=== PATIENT | female | born 1980 | race Caucasian/White ===

== ENCOUNTER 2020-01-15 18:19 | Emergency (ER) | payer OTHER ==
[2020-01-15] MEDS ORDERED: ASPIRIN 81 MG TABLET, CHEWABLE PO ONE (18:58)
--- NOTE | 2020-01-15 18:58 | ER Document Report ---
ED Medical Screen (RME) - General Chief Complaint: Chest Pain Stated Complaint: CHEST PAIN,LEFT ARM PAIN Time Seen by Provider: 01/15/20 18:54 Primary Care Provider: KRIS DENISE DO [Primary Care Provider] - Follow up as needed Mode of Arrival: Ambulatory Information source: Patient Notes: 39-year-old female presented to ED for left-sided chest pain that started this afternoon. She states she has had chest pain in the past but is always been on the right side and they are diagnosed with GERD. She states this is the first time she has had upper left chest pain and this pain radiates to her left shoulder and up to her left jaw. She denies any history of any blood pressure cholesterol or diabetes. She is alert oriented respirations regular nonlabored. Other had a heart attack at 57 he survived. He states her grandmother had heart disease and had a [address] bypass but she was in her 70s at that time. She said her only diagnoses are GERD and hypothyroid. She has had a cholecystectomy and 2 C-sections. She denies use of cigarettes alcohol or illicit drugs. I have greeted and performed a rapid initial assessment of this patient. A comprehensive ED assessment and evaluation of the patient, analysis of test results and completion of medical decision making process will be conducted by an additional ED providers. TRAVEL OUTSIDE OF THE [place] IN LAST 30 DAYS: No - Related Data Allergies/Adverse Reactions: No Known Allergies Allergy (Verified 05/06/15 09:34) Past Medical History - Past Medical History Cardiac Medical History: Denies: Hx Coronary Artery Disease, Hx Heart Attack, Hx Hypertension Pulmonary Medical History: Denies: Hx Asthma, Hx Bronchitis, Hx COPD, Hx Pneumonia Neurological Medical History: Denies: Hx Cerebrovascular Accident, Hx Seizures Musculoskeltal Medical History: Denies Hx Arthritis Past Surgical History: Reports: Hx Section, Hx Cholecystectomy - Immunizations Hx Diphtheria, Pertussis, Tetanus Vaccination: Yes Physical Exam - Vital signs Vitals: Temp Pulse Resp BP Pulse Ox 98.2 F 87 16 126/81 H 99 01/15/20 18:35 01/15/20 18:35 01/15/20 18:35 01/15/20 18:35 01/15/20 18:35 Course - Vital Signs Vital signs: Temp Pulse Resp BP Pulse Ox 98.2 F 87 16 126/81 H 99 01/15/20 18:35 01/15/20 18:35 01/15/20 18:35 01/15/20 18:35 01/15/20 18:35 Doctor's Discharge - Discharge Referrals: KRIS DENISE, [Primary Care Provider] - Follow up as needed
[2020-01-15 19:21] LABS: ABSOLUTE BASOPHILS # (AUTO) 0.1 10^3/uL (0.0-0.2); ABSOLUTE EOSINOPHILS # (AUTO) 0.3 10^3/uL (0.0-0.6); ABSOLUTE LYMPHOCYTES (AUTO) 2.4 10^3/uL (0.5-4.7); ABSOLUTE MONOCYTES (AUTO) 0.8 10^3/uL (0.1-1.4); ABSOLUTE NEUT (AUTO) 8.7 10^3/uL (1.7-8.2); EOSINOPHILS % (AUTO) 2.5 % (0-6); HEMATOCRIT 38.6 % (36.0-47.0); HEMOGLOBIN 13.1 g/dL (12.0-15.5); LYMPHOCYTES % (AUTO) 19.3 % (13-45); MEAN CORPUSCULAR HEMOGLOBIN 27.9 pg (27.0-33.4); MEAN CORPUSCULAR HGB CONC 33.9 g/dL (32.0-36.0); MEAN CORPUSCULAR VOLUME 82 fl (80-97); MONOCYTES % (AUTO) 6.4 % (3-13); PLATELET COUNT 316 10^3/uL (150-450); RED BLOOD COUNT 4.69 10^6/uL (3.72-5.28); RED CELL DISTRIBUTION WIDTH 14.1 % (11.5-14.0); SEGMENTED NEUTROPHILS % (AUTO) 70.8 % (42-78); TOTAL CELLS COUNTED % (AUTO) 100 %; WHITE BLOOD COUNT 12.3 10^3/uL (4.0-10.5)
--- NOTE | 2020-01-15 19:28 | RADIOLOGY REPORT (SQ) ---
EXAM DESCRIPTION: CHEST 2 VIEWS COMPLETED DATE/TIME: 01/15/2020 7:16 pm REASON FOR STUDY: Pain left chest left shoulder left jaw COMPARISON: None. TECHNIQUE: Frontal and lateral radiographic views of the chest acquired. NUMBER OF VIEWS: Two view. LIMITATIONS: None. FINDINGS: LUNGS AND PLEURA: No opacities, masses or pneumothorax. No pleural effusion. MEDIASTINUM AND HILAR STRUCTURES: No masses or contour abnormalities. HEART AND VASCULAR STRUCTURES: Heart normal size. No evidence for failure. BONES: No acute findings. HARDWARE: None in the chest. OTHER: No other significant finding. IMPRESSION: NO SIGNIFICANT RADIOGRAPHIC FINDING IN THE CHEST. TECHNICAL DOCUMENTATION: JOB ID: [id number] 2010 [employer]- All Rights Reserved Reading location - IP/workstation name: [email or web address]
[2020-01-15 19:46] LABS: ALBUMIN 4.6 g/dL (3.5-5.0); ALKALINE PHOSPHATASE 85 U/L (38-126); ANION GAP 10 (5-19); ASPARTATE AMINO TRANSFERASE 23 U/L (14-36); BILIRUBIN,DIRECT 0.3 mg/dL (0.0-0.4); BILIRUBIN,TOTAL 0.3 mg/dL (0.2-1.3); BLOOD UREA NITROGEN 17 mg/dL (7-20); CALCIUM 9.8 mg/dL (8.4-10.2); CARBON DIOXIDE 29 mmol/L (22-30); CHLORIDE 101 mmol/L (98-107); GLUCOSE 98 mg/dL (75-110); POTASSIUM 3.9 mmol/L (3.6-5.0); TOTAL PROTEIN 8.2 g/dL (6.3-8.2)
--- NOTE | 2020-01-15 22:19 | EKG REPORT ---
SEVERITY:- NORMAL ECG - SINUS RHYTHM : Confirmed by: Rah Landrum MD 15-Jan-2020 22:18:49
[2020-01-15] MEDS ORDERED: LIDOCAINE 2% VISCOUS SOLN 15 ML UDCUP PO ONE (23:54)
[2020-01-15] MEDS ORDERED: MAG HYDROX/AL HYDROX/SIMETH SUSP 30 ML UDCUP PO ONE (23:55)
[2020-01-15] MEDS ORDERED: METOCLOPRAMIDE HCL ORAL SOLN 10 MG/10 ML UDCUP PO ONE (23:56)
--- NOTE | 2020-01-16 00:15 | ER Document Report ---
Entered by INDIA CARRERA SCRIBE 01/15/20 [id number] Acting as scribe for:MATTHEW ANDREW IV, MD ED General - General Chief Complaint: Chest Pain Stated Complaint: CHEST PAIN,LEFT ARM PAIN Time Seen by Provider: 01/15/20 18:54 Primary Care Provider: KRIS DENISE DO [Primary Care Provider] - Follow up as needed Mode of Arrival: Ambulatory Information source: Patient Notes: This 39 year old female patient presents to the emergency department today with complaints of reproducible chest pain. Patient states that she has had this chest pain for the last few weeks and she has noticed that certain movements like rotating her head/neck reproduces the pain. Patient states that the pain is a quick stabbing pain, lasting only a few seconds. Patient mentions that she also sometimes has a "heavy throbbing feeling" in her left arm which changes based on how she holds her left arm. Patient denies any new or unusual activities. Patient adds that she has also been having trouble with GERD since October and she is unsure if that is related to this chest pain. Patient states that she has an upcoming appointment with GI scheduled. Patient states she has tried antacids with no relief. Patient is not a smoker and does not take control. TRAVEL OUTSIDE OF THE [place] IN LAST 30 DAYS: No - Related Data Allergies/Adverse Reactions: No Known Allergies Allergy (Verified 05/06/15 09:34) Past Medical History - General Information source: Patient - Social History Smoking Status: Never Smoker Cigarette use (# per day): No Frequency of alcohol use: None Drug Abuse: None Occupation: Nurse Lives with: Family Family History: Reviewed & Not Pertinent Patient has suicidal ideation: No Patient has homicidal ideation: No GI Medical History: Reports: Hx Gastroesophageal Reflux Disease Past Surgical History: Reports: Hx Section, Hx Cholecystectomy - Immunizations Hx Diphtheria, Pertussis, Tetanus Vaccination: Yes Review of Systems - Review of Systems Constitutional: No symptoms reported EENT: No symptoms reported Cardiovascular: See HPI, Chest pain Respiratory: denies: Short of breath Gastrointestinal: See HPI, Abdominal pain Genitourinary: No symptoms reported Female Genitourinary: No symptoms reported Musculoskeletal: No symptoms reported Skin: No symptoms reported Hematologic/Lymphatic: No symptoms reported Neurological/Psychological: No symptoms reported -: Yes All other systems reviewed and negative Physical Exam - Vital signs Vitals: Temp Pulse Resp BP Pulse Ox 98.2 F 87 16 126/81 H 99 01/15/20 18:35 01/15/20 18:35 01/15/20 18:35 01/15/20 18:35 01/15/20 18:35 - General General appearance: Appears well, Alert In distress: None - HEENT Head: Normocephalic, Atraumatic Eyes: Normal - Respiratory Respiratory status: No respiratory distress Chest status: Tender - reproducible left sided chest pain with palpation of the left anterior chest wall Breath sounds: Normal - Cardiovascular Rhythm: Regular Heart sounds: Normal auscultation Murmur: No - Abdominal Inspection: Obese Distension: No distension Bowel sounds: Normal Tenderness: Nontender - Extremities General upper extremity: Normal inspection, Nontender, Normal ROM General lower extremity: Normal inspection, Nontender, Normal ROM - Neurological Neuro grossly intact: Yes Cognition: Normal Orientation: AAOx4 [place] Coma Scale Eye Opening: Spontaneous Carla Coma Scale Verbal: Oriented [place] Coma Scale Motor: Obeys Commands [place] Coma Scale Total: 15 Speech: Normal - Psychological Associated symptoms: Normal affect, Normal mood - Skin Skin Temperature: Warm Skin Moisture: Dry Skin Color: Normal Course - Re-evaluation Re-evalutation: 01/16/20 01:02 Results of ED MSE discussed with patient. All questions were answered prior to discharge. Emergency signs and symptoms, reasons to return to the emergency department discussed with patient. - Vital Signs Vital signs: Temp Pulse Resp BP Pulse Ox 98.2 F 87 16 126/81 H 99 01/15/20 18:35 01/15/20 18:35 01/15/20 18:35 01/15/20 18:35 01/15/20 18:35 - Laboratory Result Diagrams: 01/15/20 19:00 01/15/20 19:00 Laboratory results interpreted by me: 01/15/20 19:00 WBC 12.3 H RDW 14.1 H Absolute Neuts (auto) 8.7 H - EKG Interpretation by Me Additional EKG results interpreted by me: 01/16/20 01:03 EKG obtained on 01/15/2020 at 1830 hrs. was interpreted by this MD. Findings: Normal sinus rhythm, rate 81, normal axis, P waves proceed QRS complexes, QRS complexes appear narrow, there are no obvious patterns of ST segment elevation or depression present to suggest acute myocardial ischemia or infarction. Impr ession: Normal sinus rhythm with nonspecific ST segments. Discharge - Discharge Clinical Impression: Chest pain Qualifiers: Chest pain type: unspecified Qualified Code(s): R07.9 - Chest pain, unspecified Condition: Good Disposition: HOME, SELF-CARE Instructions: Chest Pain of Unclear Cause ([facility]) Additional Instructions: Return to the Emergency Department without delay if any worse. HOME CARE INSTRUCTIONS & INFORMATION: Thank you for choosing us for your medical needs. We hope you're satisfied with the care you received. After you leave, you must properly care for your problem and, at the same time, observe its progress. Any condition can change. Some illnesses can change rapidly over hours or days. If your condition worsens, return to the Emergency Department or see your physician promptly. ABOUT YOUR X-RAYS AND EKG'S: If you had an EKG or X-rays taken, they have been read by the Emergency Physician. The X-rays and EKG's will also be read by a Radiologist or Therapist Phys within 24 hours. If discrepancies are noted, you will be notified by telephone. Please be certain the ED has a correct telephone number & address where you can be reached. Also, realize that some fractures or abnormalities do not show up on initial X-rays. If your symptoms continue, see your physician. ABOUT YOUR LABORATORY TEST: If you had laboratory tests, the results have been reviewed by the Emergency Physician. Some test results (for example cultures) may not be available for several days. You will be contacted if any test result shows you need additional treatment. Please be certain the ED has a correct telephone number and address where you can be reached. ABOUT YOUR MEDICATIONS: You will receive instructions on how to take your medicine on the prescription label you receive. Additional information may be provided by the Pharmacy. If you have questions afterwards, call the ED for clarification or further instructions. Some prescribed medications may cause drowsiness. Do not perform tasks such as driving a car or operating machinery without consulting your Pharmacist. If you feel you need a refill of pain medication, your condition will need re-evaluation. Please do not call for a refill of any medication. ABOUT YOUR SIGNATURE: Signature of this document acknowledges to followin. Understanding that you received emergency treatment and that you may be released before al medical problems are known or treated. Please be certain the ED has a correct phone number & address where you can be reached. 2. Acknowledgement that you will arrange for follow-up care as recommended. 3. Authorization for the Emergency Physician to provide information to your follow-up Physician in order to maximize your care. AT ANY TIME, IF YOUR SYMPTOMS CHANGE SIGNIFICANTLY OR WORSEN OR YOU DEVELOP NEW SYMPTOMS, RETURN TO THE EMERGENCY DEPARTMENT IMMEDIATELY FOR RE-EVALUATION. OUR GOAL IS TO PROVIDE EXCELLENT MEDICAL CARE! WE HOPE THAT WE HAVE MET YOUR EXPECTATIONS DURING YOUR EMERGENCY DEPARTMENT VISIT AND THAT YOU FEEL YOU HAVE RECEIVED EXCELLENT CARE! Referrals: KRIS DENISE, DO [Primary Care Provider] - Follow up as needed I personally performed the services described in the documentation, reviewed and edited the documentation which was dictated to the scribe in my presence, and it accurately records my words and actions.
[2020-01-16 01:58] VITALS: BP 120/79
== END 2020-01-16 01:53 | disposition home or self-care (01) ==
LOC: ER 18:19
DX: R07.9 Chest pain, unspecified (principal); R10.9 Unspecified abdominal pain; M79.602 Pain in left arm; E66.9 Obesity, unspecified; K21.9 Gastro-esophageal reflux disease without esophagitis; Z90.49 Acquired absence of other specified parts of digestive tract
CPT/HCPCS: 93005; 99285; 36415; 85025; 80053; 84484; 71046; 93010; J3490

== ENCOUNTER → 2020-08-02 | Outpatient (CLI) | payer OTHER ==
--- NOTE | 2020-08-02 12:50 | RADIOLOGY REPORT (SQ) ---
EXAM DESCRIPTION: NM GASTRIC EMPTYING STUDY IMAGES COMPLETED DATE/TIME: 08/02/2020 12:39 pm REASON FOR STUDY: R14.0 ABDOMINAL DISTENSION (GASEOUS) R14.0 ABDOMINAL DISTENSION (GASEOUS) COMPARISON: None. RADIONUCLIDE AND DOSE: 2 millicuries Tc-99m Sulfur Colloid. Egg salad sandwich The route of agent administration: Oral. TECHNIQUE: 1 minute serial static imaging performed at time of meal, 1 hour, 2 hours, 3 hours, and 4 hours as needed. Once stomach reaches 90% emptying, the test is complete. Image intensity values pl otted with respect to time with linear regression algorithm. LIMITATIONS: None. FINDINGS: Patient was observed for 4 hours. Immediate post meal serves as baseline. Gastric emptying at 30 minutes was 17.3%. Gastric emptying at 60 minutes was 39.9% Gastric emptying at 90 minutes was 58.4%. Gastric emptying at 120 minutes was 71.9%. Gastric emptying at 240 minutes was 94.7% Normal values: 60 minutes: 30-90% retained. If less than 30%, abnormally rapid emptying. If greater than 90%, delaye d gastric emptying. 120 minutes: <60% retained. If greater than 60%, delayed gastric emptying. 240 minutes: <10% retained. If greater than 10%, delayed gastric emptying. IMPRESSION: NORMAL GASTRIC EMPTYING. TECHNICAL DOCUMENTATION: JOB ID: [id number] 2010 [employer]- All Rights Reserved rev-03/28 Reading location - IP/workstation name: [email or web address]
== END ==
LOC: RAD 07:51
PROVIDERS: ATTEND Internal Medicine Gastroenterology
DX: R14.0 Abdominal distension (gaseous) (principal)
CPT/HCPCS: 78264; A9541

== ENCOUNTER 2020-08-12 20:53 | Emergency (ER) | payer OTHER ==
[2020-08-12] MEDS ORDERED: NORMAL SALINE 1000 ML 1,000 ML IV ONE (21:34)
--- NOTE | 2020-08-12 21:34 | ER Document Report ---
ED Medical Screen (RME) - General Chief Complaint: Headache Stated Complaint: HEADACHE Time Seen by Provider: 08/12/20 21:25 Primary Care Provider: ARDEN GARDNER MD [Primary Care Provider] - Follow up as needed Information source: Patient Notes: Patient presents complaining of frontal headache that radiates around to the back of her head. Patient states headache started around 10 AM this morning and has gradually worsened throughout the day. Patient states prior to arrival this evening she started to develop left arm numbness. Patient states she has had headaches that are severe monthly although not typically this severe and has had left arm pain in the past although has never had left arm numbness like she is experiencing this evening. Patient reports history of hypothyroidism. I have greeted and performed a rapid initial assessment of this patient. A comprehensive ED assessment and evaluation of the patient, analysis of test results and completion of the medical decision making process will be conducted by additional ED providers. TRAVEL OUTSIDE OF THE [place] IN LAST 30 DAYS: No - Related Data Allergies/Adverse Reactions: No Known Allergies Allergy (Verified 05/06/15 09:34) Past Medical History - Past Medical History Cardiac Medical History: Denies: Hx Coronary Artery Disease, Hx Heart Attack, Hx Hypertension Pulmonary Medical History: Denies: Hx Asthma, Hx Bronchitis, Hx COPD, Hx Pneumonia Neurological Medical History: Denies: Hx Cerebrovascular Accident, Hx Seizures GI Medical History: Reports: Hx Gastroesophageal Reflux Disease Musculoskeltal Medical History: Denies Hx Arthritis Past Surgical History: Reports: Hx Section, Hx Cholecystectomy - Immunizations Hx Diphtheria, Pertussis, Tetanus Vaccination: Yes Physical Exam - Vital signs Vitals: Temp Pulse Resp BP Pulse Ox 97.3 F 79 18 126/71 H 98 08/12/20 21:14 08/12/20 21:14 08/12/20 21:14 08/12/20 21:14 08/12/20 21:14 - Neurological Neuro grossly intact: Yes Cognition: Normal Carla Coma Scale Eye Opening: Spontaneous Carla Coma Scale Verbal: Oriented Carla Coma Scale Motor: Obeys Commands [place] Coma Scale Total: 15 Notes: Numbness to left upper extremity Course - Vital Signs Vital signs: Temp Pulse Resp BP Pulse Ox 97.3 F 79 18 126/71 H 98 08/12/20 21:14 08/12/20 21:14 08/12/20 21:14 08/12/20 21:14 08/12/20 21:14 Doctor's Discharge - Discharge Referrals: ARDEN GARDNER MD [Primary Care Provider] - Follow up as needed
[2020-08-12 21:55] LABS: ABSOLUTE BASOPHILS # (AUTO) 0.1 10^3/uL (0.0-0.2); ABSOLUTE EOSINOPHILS # (AUTO) 0.2 10^3/uL (0.0-0.6); ABSOLUTE LYMPHOCYTES (AUTO) 2.3 10^3/uL (0.5-4.7); ABSOLUTE MONOCYTES (AUTO) 0.9 10^3/uL (0.1-1.4); ABSOLUTE NEUT (AUTO) 8.4 10^3/uL (1.7-8.2); BASOPHILS % (AUTO) 0.9 % (0-2); EOSINOPHILS % (AUTO) 1.3 % (0-6); HEMATOCRIT 36.3 % (36.0-47.0); HEMOGLOBIN 12.2 g/dL (12.0-15.5); LYMPHOCYTES % (AUTO) 19.2 % (13-45); MEAN CORPUSCULAR HEMOGLOBIN 26.8 pg (27.0-33.4); MEAN CORPUSCULAR HGB CONC 33.4 g/dL (32.0-36.0); MEAN CORPUSCULAR VOLUME 80 fl (80-97); MONOCYTES % (AUTO) 7.3 % (3-13); PLATELET COUNT 303 10^3/uL (150-450); RED BLOOD COUNT 4.54 10^6/uL (3.72-5.28); RED CELL DISTRIBUTION WIDTH 14.8 % (11.5-14.0); SEGMENTED NEUTROPHILS % (AUTO) 71.3 % (42-78); TOTAL CELLS COUNTED % (AUTO) 100 %; WHITE BLOOD COUNT 11.7 10^3/uL (4.0-10.5)
[2020-08-12 21:58] LABS: PARTIAL THROMBOPLASTIN TIME 30.3 SEC (23.5-35.8)
[2020-08-12 22:01] LABS: INTERNATIONAL RATION (INR) 0.94; PROTHROMBIN TIME 12.8 SEC (11.4-15.4)
[2020-08-12 22:02] LABS: ALBUMIN 4.5 g/dL (3.5-5.0); ALKALINE PHOSPHATASE 90 U/L (38-126); ANION GAP 10 (5-19); ASPARTATE AMINO TRANSFERASE 20 U/L (14-36); BILIRUBIN,DIRECT 0.3 mg/dL (0.0-0.4); BILIRUBIN,TOTAL 0.3 mg/dL (0.2-1.3); BLOOD UREA NITROGEN 19 mg/dL (7-20); CALCIUM 9.3 mg/dL (8.4-10.2); CARBON DIOXIDE 25 mmol/L (22-30); CHLORIDE 104 mmol/L (98-107); CREATINE KINASE 62 U/L (30-135); GLUCOSE 115 mg/dL (75-110); POTASSIUM 4.1 mmol/L (3.6-5.0); TOTAL PROTEIN 7.6 g/dL (6.3-8.2)
[2020-08-12 22:22] LABS: CREATINE KINASE MB < 0.22 ng/mL (<4.55); TROPONIN I < 0.012 ng/mL
--- NOTE | 2020-08-12 22:28 | RADIOLOGY REPORT (SQ) ---
EXAM DESCRIPTION: XR CHEST 1 VIEW COMPLETED DATE/TME: 08/12/2020 21:31 CLINICAL HISTORY: 40 years, Female, [place], L arm numbness COMPARISON: 01/15/2020 chest NUMBER OF VIEWS: 1 TECHNIQUE: Portable chest LIMITATIONS: None. FINDINGS: Heart size is normal. Lungs are clear. No pneumothorax IMPRESSION: Negative chest copyright 2010 [employer]- All Rights Reserved
[2020-08-12] MEDS ORDERED: ONDANSETRON HCL INJ/PF 4 MG/2 ML SDV IV ONE (22:32)
--- NOTE | 2020-08-12 22:38 | RADIOLOGY REPORT (SQ) ---
EXAM DESCRIPTION: CT HEAD WITHOUT IV CONTRAST COMPLETED DATE/TME: 08/12/2020 21:31 CLINICAL HISTORY: 40 years, Female, [place], L arm numbness COMPARISON: None. TECHNIQUE: Noncontrast images of the brain were obtained. Images stored on PACS. All CT scanners at this facility use dose modulation, iterative reconstruction, and/or weight based dosing when appropriate to reduce radiation dose to as low as reasonably achievable (ALARA). [facility]: Dose Right [facility]: CareDose [facility]: Dose Right [facility]: Teradose 4D [facility]: [employer] LIMITATIONS: None. FINDINGS: There is no acute intracranial hemorrhage, abnormal mass effect, or major vascular territorial infarction. The ventricular system and extra-axial spaces are within normal limits. The calvarium is intact. The visualized portions of the paranasal sinuses and mastoid air cells are clear. IMPRESSION: No acute abnormality as above. TECHNICAL DOCUMENTATION: Quality ID # [id number]: Final reports with documentation of one or more dose reduction techniques (e.g., Automated exposure control, adjustment of the mA and/or kV according to patient size, use of iterative reconstruction technique) copyright 2011 [employer]- All Rights Reserved
--- NOTE | 2020-08-12 22:49 | EKG REPORT ---
SEVERITY:- NORMAL ECG - SINUS RHYTHM : Confirmed by: Rah Landrum MD 12-Aug-2020 22:49:00
--- NOTE | 2020-08-12 22:51 | ER Document Report ---
ED Headache - General Chief Complaint: Headache Stated Complaint: HEADACHE Time Seen by Provider: 08/12/20 21:25 Primary Care Provider: [facility] [Provider Group] - 08/15/20 ARDEN GARDNER MD [Primary Care Provider] - Follow up as needed Notes: Patient is a 40-year-old female who presents emergency department with a chief complaint of a headache that starts in the frontal part of her head and radiates down the back of her head. States that her symptoms started around 10:00 this morning. States that the headache has gotten progressively worse. States that she has left arm numbness. Patient has history of headaches in the past. Patient states that the numbness is something that she experiences every time that she has a migraine headache. Patient has history of hypothyroidism. Denies any new weaknesses. Denies slurred speech. TRAVEL OUTSIDE OF THE [place] IN LAST 30 DAYS: No - Related Data Allergies/Adverse Reactions: No Known Allergies Allergy (Verified 05/06/15 09:34) Past Medical History - General Information source: Patient - Social History Smoking Status: Never Smoker Family History: Reviewed & Not Pertinent - Past Medical History Cardiac Medical History: Denies: Hx Coronary Artery Disease, Hx Heart Attack, Hx Hypertension Pulmonary Medical History: Denies: Hx Asthma, Hx Bronchitis, Hx COPD, Hx Pneumonia Neurological Medical History: Denies: Hx Cerebrovascular Accident, Hx Seizures GI Medical History: Reports: Hx Gastroesophageal Reflux Disease Musculoskeletal Medical History: Denies Hx Arthritis Past Surgical History: Reports: Hx Section, Hx Cholecystectomy - Immunizations Hx Diphtheria, Pertussis, Tetanus Vaccination: Yes Review of Systems - Review of Systems Notes: REVIEW OF SYSTEMS: CONSTITUTIONAL : Denies recent illness. Denies recent unintentional weight loss. Denies fever, chills, or sweats. EENT: Denies eye, ear, throat, or mouth pain, discharge, or symptoms. Denies nasal or sinus congestion. CARDIOVASCULAR: Denies chest pain. RESPIRATORY: Denies shortness of breath, cough, congestion, difficulty breathing, or wheezing. GASTROINTESTINAL: Denies nausea, vomiting, and diarrhea. Denies abdominal pain. Denies constipation. GENITOURINARY: Denies difficulty urinating, burning, blood in urine, urgency or frequency. MUSCULOSKELETAL: See HPI. SKIN: Denies rash, itchiness, or lesions HEMATOLOGIC : Denies easy bruising or bleeding. LYMPHATIC: Denies swollen, painful, enlarged glands. NEUROLOGICAL: See HPI. PSYCHIATRIC: Denies stress, anxiety, alteration in sleep patterns, or depression. All other systems reviewed and negative. Physical Exam - Vital signs Vitals: Temp Pulse Resp BP Pulse Ox 97.3 F 79 18 126/71 H 98 08/12/20 21:14 08/12/20 21:14 08/12/20 21:14 08/12/20 21:14 08/12/20 21:14 - Notes Notes: PHYSICAL EXAMINATION: GENERAL: Appears well, healthy, well-nourished, no acute distress. HEAD: Normocephalic, atraumatic. EYES: PERRL, conjunctiva normal, all extraocular movements intact, sclera no nicteric ENT: Moist mucous membranes. NECK: Supple, no noticeable swelling, redness, rash. Normal range of motion. LUNGS: Equal breath sounds bilaterally and clear to auscultation. No wheezes r ales or rhonchi. CARDIOVASCULAR: S1-S2, regular rate, regular rhythm. Radial pulses 2+, normal. ABDOMEN: Normoactive bowel sounds. Soft, nontender, no guarding, no rebound tenderness, and no masses palpated. EXTREMITIES: Normal strength and range of motion, no pitting or edema. No cyanosis. Tenderness to left trapezius muscle and back. Tenderness to left lateral neck. NEUROLOGICAL: Moves all extremities upon command. Strength 5/5 in all extremities. PSYCH: Normal mood, normal affect. SKIN: Warm, dry. No rash, lesions, ulcerations noted. Normal skin turgor. Course - Re-evaluation Re-evalutation: 08/12/20 22:54 Clarified with the patient, the patient has had this left arm numbness before. States that Robaxin has not helped in the past for the pain. Has had Flexeril, which has worked for sciatic nerve pain in the past. Will order the patient a dose of Flexeril. CT of the head is unremarkable. I have a low suspicion for an ischemic stroke, as the patient has low risk factors and has had this kind of headache in the past. 08/12/20 23:25 Patient states that she feels a little bit better after receiving Zofran. It has not been very long since she received the Flexeril. Patient states that she would like to go home. I have a low suspicion for meningitis, intracranial bleed, or any other life-threatening etiology at this time. Patient is to go home and follow-up with her primary care provider on Saturday. Recommended physical therapy. Follow-up precautions were given. Verbal discharge instr uctions were given to the patient. They verbalized understanding. They are stable for discharge. - Vital Signs Vital signs: Temp Pulse Resp BP Pulse Ox 97.3 F 79 10 L 137/84 H 100 08/12/20 21:14 08/12/20 21:14 08/12/20 23:00 08/12/20 22:12 08/12/20 23:00 - Laboratory Result Diagrams: 08/12/20 21:39 08/12/20 21:39 Laboratory results interpreted by me: 08/12/20 08/12/20 21:39 21:39 WBC 11.7 H MCH 26.8 L RDW 14.8 H Absolute Neuts (auto) 8.4 H Glucose 115 H Neonat Total Bilirubin 0.0 L - EKG Interpretation by Me Additional EKG results interpreted by me: 08/12/20 23:30 Sinus rhythm. Rate 79. OR 148; QRS 88; QT 376; QTc 432. No ST elevations or depressions noted. No acute change from previous EKG done on 01/15/2020. Discharge - Discharge Clinical Impression: Headache Qualifiers: Headache type: unspecified Headache chronicity pattern: acute headache Intractability: not intractable Qualified Code(s): R51.9 - Headache, unspecified Condition: Stable Disposition: HOME, SELF-CARE Instructions: Antinausea Medication ([facility]), Headache ([facility]) Additional Instructions: You have been seen in the Emergency Department (ED) for a headache. Please use Tylenol (acetaminophen) or Motrin (ibuprofen) as needed for symptoms, but only as written on the box. As we have discussed, please follow up with your primary care doctor as soon as possible regarding today's ED visit and your headache symptoms. Call your doctor or return to the ED if you have a worsening headache, sudden and severe headache, confusion, slurred speech, facial droop, weakness or numbness in any arm or leg, extreme fatigue, or other symptoms that concern you. Take Flexeril as needed for muscle pain. Prescriptions: Cyclobenzaprine HCl [Flexeril 10 mg Tablet] 10 mg PO TIDP PRN #15 tab PRN Reason: Metoclopramide HCl [Reglan 10 mg Tablet] 1 - 2 tab PO ASDIR PRN #25 tablet PRN Reason: Ondansetron [Zofran Odt 4 mg Tablet] 1 - 2 tab PO Q4H PRN #15 tab.rapdis PRN Reason: For Nausea/Vomiting Referrals: ARDEN GARDNER MD [Primary Care Provider] - Follow up as needed [facility] [Provider Group] - 08/15/20
[2020-08-12] MEDS ORDERED: CYCLOBENZAPRINE HCL 10 MG TABLET PO ONE (22:54)
[2020-08-12] MEDS ORDERED: ONDANSETRON ODT 4 MG TAB (6 TAB/ER DISP) PO PRN (23:25)
[2020-08-12 23:34] VITALS: BP 137/84
== END 2020-08-12 23:44 | disposition home or self-care (01) ==
LOC: ER 20:53
DX: R51.9 Headache, unspecified (principal); Z90.49 Acquired absence of other specified parts of digestive tract
CPT/HCPCS: 93005; 99285; 96361; 96374; 36415; 82553; 82550; 85025; 85610; 85730; 80053; 84484; 71045; 70450; 93010; J2405; J7030

== ENCOUNTER 2020-09-19 12:32 | Emergency (ER) | payer SELFPAY ==
[2020-09-19] MEDS ORDERED: NORMAL SALINE 1000 ML 1,000 ML IV ONE (14:51)
[2020-09-19] MEDS ORDERED: ONDANSETRON HCL INJ/PF 4 MG/2 ML SDV IV ONE ×2 (14:51→20:09)
[2020-09-19] MEDS ORDERED: DIPHENHYDRAMINE HCL 50 MG/ML VIAL IV ONE ×2 (14:51→21:21)
--- NOTE | 2020-09-19 14:53 | ER Document Report ---
ED GI/ - General TRAVEL OUTSIDE OF THE [place] IN LAST 30 DAYS: No - Related Data Home Medications: synthroid, protonix <ALAYNA TIAN - Last Filed: 09/19/20 20:32> <MARVIN GREGORIO - Last Filed: 09/19/20 22:55> - General Chief Complaint: Nausea/Vomiting Stated Complaint: VOMITING,WEAKNESS Time Seen by Provider: 09/19/20 13:20 Primary Care Provider: KRIS DENISE DO [Primary Care Provider] - Follow up in 3-5 days Notes: Patient is a 40-year-old female presents emergency department with a chief complaint of nausea, vomiting, weakness, and headache that is at the front of her head. Patient states that for the past about 4 days, she has had the symptoms. Denies any contact with anybody who tested positive for COVID-19. Patient states that she feels "foggy." Patient has tried ibuprofen and Tylenol, but has had no relief of her symptoms. Denies any fever. Reports some chills. Patient denies any abdominal pain. Denies any shortness of breath or difficulty breathing. (ALAYNA TIAN) - Related Data Allergies/Adverse Reactions: metoclopramide [From Reglan] Allergy (Verified 09/19/20 13:46) Difficulty breathing prochlorperazine [From Compazine] Allergy (Verified 09/19/20 13:46) Difficulty breathing Past Medical History - Social History Smoking Status: Never Smoker Chew tobacco use (# tins/day): No Frequency of alcohol use: None Drug Abuse: None Family History: Reviewed & Not Pertinent - Past Medical History Cardiac Medical History: Denies: Hx Coronary Artery Disease, Hx Heart Attack, Hx Hypertension Pulmonary Medical History: Denies: Hx Asthma, Hx Bronchitis, Hx COPD, Hx Pneumonia Neurological Medical History: Denies: Hx Cerebrovascular Accident, Hx Seizures GI Medical History: Reports: Hx Gastroesophageal Reflux Disease Musculoskeletal Medical History: Denies Hx Arthritis Past Surgical History: Reports: Hx Section, Hx Cholecystectomy - Immunizations Hx Diphtheria, Pertussis, Tetanus Vaccination: Yes <ALAYNA TIAN - Last Filed: 09/19/20 20:32> Review of Systems <ALAYNA TIAN - Last Filed: 09/19/20 20:32> - Review of Systems Notes: REVIEW OF SYSTEMS: CONSTITUTIONAL : Denies recent illness. Denies recent unintentional weight loss. Denies fever, chills, or sweats. EENT: Denies eye, ear, throat, or mouth pain, discharge, or symptoms. Denies nasal or sinus congestion. CARDIOVASCULAR: Denies chest pain. RESPIRATORY: Denies shortness of breath, cough, congestion, difficulty breathing, or wheezing. GASTROINTESTINAL: See HPI. GENITOURINARY: Denies difficulty urinating, burning, blood in urine, urgency or frequency. MUSCULOSKELETAL: Denies neck and back pain. Denies joint pain or swelling. SKIN: Denies rash, itchiness, or lesions HEMATOLOGIC : Denies easy bruising or bleeding. LYMPHATIC: Denies swollen, painful, enlarged glands. NEUROLOGICAL: Denies no numbness or tingling denies weakness. Denies altered mental status. Denies alteration in speech. See HPI. PSYCHIATRIC: Denies stress, anxiety, alteration in sleep patterns, or depression. All other systems reviewed and negative. (ALAYNA TIAN) Physical Exam <ALAYNA TIAN - Last Filed: 09/19/20 20:32> - Vital signs Vitals: Temp Pulse Resp BP Pulse Ox 98.5 F 79 20 133/81 H 100 09/19/20 13:12 09/19/20 13:12 09/19/20 13:12 09/19/20 13:12 09/19/20 13:12 - Notes Notes: PHYSICAL EXAMINATION: GENERAL: Appears well, healthy, well-nourished, no acute distress. HEAD: Normocephalic, atraumatic. EYES: PERRL, conjunctiva normal, all extraocular movements intact, sclera nonicteric ENT: Moist mucous membranes. Purulent drainage noted behind bilateral tympanic membranes. NECK: Supple, no noticeable swelling, redness, rash. Normal range of motion. LUNGS: Equal breath sounds bilaterally and clear to auscultation. No wheezes rales or rhonchi. CARDIOVASCULAR: S1-S2, regular rate, regular rhythm. Radial pulses 2+, normal. ABDOMEN: Normoactive bowel sounds. Soft, nontender, no guarding, no rebound tenderness, and no masses palpated. EXTREMITIES: Normal strength and range of motion, no pitting or edema. No cyanosis. NEUROLOGICAL: Moves all extremities upon command. Strength 5/5 in all extremities. PSYCH: Normal mood, normal affect. SKIN: Warm, dry. No rash, lesions, ulcerations noted. Normal skin turgor. (ALAYNA TIAN) Course - Laboratory Result Diagrams: 09/19/20 15:53 09/19/20 15:53 <ALAYNA TIAN - Last Filed: 09/19/20 20:32> - Laboratory Result Diagrams: 09/19/20 15:53 09/19/20 15:53 - Diagnostic Test Radiology reviewed: Image reviewed, Reports reviewed <MARVIN GREGORIO - Last Filed: 09/19/20 22:55> - Re-evaluation Re-evalutation: 09/19/20 17:29 Hematology shows a slight leukocytosis of 10,800. Chemistries are unremarkable. Urinalysis shows small amount of blood, patient is currently on her menstrual cycle. Patient's bilateral tympanic membranes look infected, as there is purulent drainage behind both of them. Will place patient on amoxicillin for otitis media. 09/19/20 19:20 Patient states that she feels worse than when she came in. I will send the patient for CT of the head to rule out any intracranial process. 09/19/20 20:32 Bedside report given to CAROLINA Meade. She will follow up with the CT of the head. (ALAYNA TIAN) 09/19/20 20:16 Assumed care of the patient from nurse practitioner Alayna Tian. Patient with headache for several days it is right-sided with significant nausea and photophobia. Initially FORE[employer] TECHNICIAN's Alayna Tian felt like maybe her ears look slightly infected. She started her on some amoxicillin. She was given Phenergan and Benadryl for her nausea and headache. That really helped her. She continues to complain of a significant headache. Thus, head CT was ordered. I went and rounded on the patient with nurse practitioner placed and examined her myself. She is significantly photophobic. Holding the right side of her he ad. Wanting only the lights off. She is fully neurologically intact with no deficit. She has no nystagmus. Ear exam shows some mild erythema but the TMs actually look pretty clear save for a little serous effusion. She does not have a stiff neck or nuchal rigidity. We will await the head CT results. Will give Decadron now and Zofran. Will give another bag of fluids. Of note there is no family history for cerebral aneurysm. Rounded on the patient after head CT which is negative. We will go ahead and give 30 mg of Toradol to see if that helps with her headache. I advised the patient of her head CT result and the plan to give Toradol. I will go and see her approximately 30 minutes after the Toradol to see if she is improved. Patient agrees with the plan 09/19/20 22:34 Rounded on patient. She states the Toradol is helping her headache. She has now a 3 out of 5 for pain. She has good control of her nausea. We did give her another 12.5 mg of Benadryl because after the Decadron she started to feel like she had a tickle in her throat. After the Benadryl that resolved. We will round on the patient again in 20 minutes to see how she is doing. 09/19/20 22:50 Rounded on the patient. Her headache is improved even further. Now she has a headache that is a 1 out of 5. She states she feels a lot better and she would like to go home. Suspect that this is some sort of migraine variant. We will have her follow-up with her physician at [facility]. She is to return if she has any worsening symptoms. We discussed antibiotics for her ears and she would like to have the amoxicillin. Will send that over to her pharmacy. We will also send home with Fioricet and Zofran. Impression: Headache, nausea vomiting, photophobia, concern for early ear infection. We will follow the treatment plan as described above. I encouraged her to return if any worsening symptoms. Patient agrees with the plan. (MARVIN GREGORIO) - Vital Signs Vital signs: Temp Pulse Resp BP Pulse Ox 98.5 F 78 20 131/80 H 100 09/19/20 19:51 09/19/20 19:51 09/19/20 19:51 09/19/20 19:51 09/19/20 19:51 - Laboratory Laboratory results interpreted by me: 09/19/20 09/19/20 15:00 15:53 WBC 10.8 H MCH 26.8 L RDW 14.6 H Urine Blood SMALL H Discharge <JAYLAN,ALAYNA M - Last Filed: 09/19/20 20:32> <MARVIN GREGORIO M - Last Filed: 09/19/20 22:55> - Discharge Clinical Impression: Photophobia of both eyes Otitis media Qualifiers: Otitis media type: unspecified Laterality: bilateral Qualified Code(s): H66.93 - Otitis media, unspecified, bilateral Headache Qualifiers: Headache type: unspecified Headache chronicity pattern: acute headache Intractability: not intractable Qualified Code(s): R51.9 - Headache, unspecified Nausea & vomiting Qualifiers: Vomiting type: unspecified Vomiting Intractability: non-intractable Qualified Code(s): R11.2 - Nausea with vomiting, unspecified Condition: Stable Disposition: HOME, SELF-CARE Additional Instructions: You were seen today in emergency department for a headache. Your ears appear to be infected. Amoxicillin as prescribed. Please follow-up with your primary care provider in regards to this visit. You could also take nausea medication as prescribed. Prescriptions: Ondansetron [Zofran Odt 4 mg Tablet] 1 - 2 tab PO Q4HP PRN #10 tab.rapdis PRN Reason: Amoxicillin Trihydrate [Amoxil 500 mg Capsule] 500 mg PO TID #30 cap Butalb/Acetaminophen/Caffeine [Fioricet (50-325-40 mg) Tablet] 1 tab PO Q6H #12 tab Forms: Return to Work Referrals: KRIS DENISE DO [Primary Care Provider] - Follow up in 3-5 days
[2020-09-19 15:27] LABS: APPEARANCE,URINE CLEAR; BILIRUBIN,URINE NEGATIVE (NEGATIVE); COLOR,URINE YELLOW; GLUCOSE, URINE NEGATIVE (NEGATIVE); KETONES,URINE NEGATIVE (NEGATIVE); LEUKOCYTE ESTERASE,URINE NEGATIVE (NEGATIVE); NITRITE,URINE NEGATIVE (NEGATIVE); PROTEIN,URINE NEGATIVE (NEGATIVE); URINE SPECIFIC GRAVITY 1.011; UROBILINOGEN,URINE NEGATIVE mg/dL (<2.0)
[2020-09-19 17:02] LABS: ABSOLUTE BASOPHILS # (AUTO) 0.1 10^3/uL (0.0-0.2); ABSOLUTE EOSINOPHILS # (AUTO) 0.1 10^3/uL (0.0-0.6); ABSOLUTE LYMPHOCYTES (AUTO) 2.5 10^3/uL (0.5-4.7); ABSOLUTE MONOCYTES (AUTO) 0.6 10^3/uL (0.1-1.4); ABSOLUTE NEUT (AUTO) 7.5 10^3/uL (1.7-8.2); BASOPHILS % (AUTO) 0.6 % (0-2); EOSINOPHILS % (AUTO) 0.8 % (0-6); HEMATOCRIT 37.9 % (36.0-47.0); HEMOGLOBIN 12.7 g/dL (12.0-15.5); LYMPHOCYTES % (AUTO) 23.5 % (13-45); MEAN CORPUSCULAR HEMOGLOBIN 26.8 pg (27.0-33.4); MEAN CORPUSCULAR HGB CONC 33.5 g/dL (32.0-36.0); MEAN CORPUSCULAR VOLUME 80 fl (80-97); MONOCYTES % (AUTO) 5.9 % (3-13); PLATELET COUNT 318 10^3/uL (150-450); RED BLOOD COUNT 4.74 10^6/uL (3.72-5.28); RED CELL DISTRIBUTION WIDTH 14.6 % (11.5-14.0); SEGMENTED NEUTROPHILS % (AUTO) 69.2 % (42-78); TOTAL CELLS COUNTED % (AUTO) 100 %; WHITE BLOOD COUNT 10.8 10^3/uL (4.0-10.5)
[2020-09-19 17:06] LABS: ALBUMIN 4.6 g/dL (3.5-5.0); ALKALINE PHOSPHATASE 89 U/L (38-126); ANION GAP 12 (5-19); ASPARTATE AMINO TRANSFERASE 20 U/L (14-36); BILIRUBIN,DIRECT 0.1 mg/dL (0.0-0.4); BILIRUBIN,TOTAL 0.4 mg/dL (0.2-1.3); BLOOD UREA NITROGEN 11 mg/dL (7-20); CARBON DIOXIDE 25 mmol/L (22-30); CHLORIDE 103 mmol/L (98-107); GLUCOSE 89 mg/dL (75-110); POTASSIUM 4.3 mmol/L (3.6-5.0); TOTAL PROTEIN 7.7 g/dL (6.3-8.2)
[2020-09-19] MEDS ORDERED: PROMETHAZINE HCL INJ 25 MG/1 ML VIAL IV ONE (17:10)
[2020-09-19] MEDS ORDERED: AMOXICILLIN TRYHYD 250 MG/5 ML SUSP 80 ML (ER DISP) PO ONE (18:43)
[2020-09-19] MEDS ORDERED: AMOXICILLIN TRIHYDRATE 500 MG CAPSULE PO ONE (18:50)
[2020-09-19] MEDS ORDERED: DEXAMETHASONE SOD PHOS INJ 10 MG/1 ML VIAL IV ONE (20:09)
[2020-09-19] MEDS ORDERED: DEXAMETHASONE SOD PHOSPHATE INJ 4 MG/1 ML VIAL ONE (20:26)
[2020-09-19] MEDS: NORMAL SALINE 1000 ML 1,000 ML IV PRN ×2 (20:44→22:17)
--- NOTE | 2020-09-19 20:57 | RADIOLOGY REPORT (SQ) ---
EXAM DESCRIPTION: CT HEAD WITHOUT IV CONTRAST COMPLETED DATE/TME: 09/19/2020 20:16 CLINICAL HISTORY: 40 years, Female, headache COMPARISON: August 12, 2020 TECHNIQUE: Noncontrast images of the brain were obtained. Images stored on PACS. All CT scanners at this facility use dose modulation, iterative reconstruction, and/or weight based dosing when appropriate to reduce radiation dose to as low as reasonably achievable (ALARA). [facility]: Dose Right [facility]: CareDose [facility]: Dose Right [facility]: Teradose 4D [facility]: [employer] LIMITATIONS: None. FINDINGS: There is no acute intracranial hemorrhage, abnormal mass effect, or major vascular territorial infarction. The ventricular system and extra-axial spaces are within normal limits. The calvarium is intact. There is a tiny, 4 mm because retention cyst or polyp in the left maxillary sinus floor. IMPRESSION: No acute abnormality as above. TECHNICAL DOCUMENTATION: Quality ID # [id number]: Final reports with documentation of one or more dose reduction techniques (e.g., Automated exposure control, adjustment of the mA and/or kV according to patient size, use of iterative reconstruction technique) copyright 2011 [employer]- All Rights Reserved
[2020-09-19] MEDS ORDERED: KETOROLAC TROMETHAMINE INJ/PF 30 MG/1 ML SDV IV ONE (21:10)
[2020-09-20 00:01] VITALS: BP 129/77
== END 2020-09-20 | disposition home or self-care (01) ==
LOC: ER 12:32
DX: R51.9 Headache, unspecified (principal); R11.2 Nausea with vomiting, unspecified; H66.93 Otitis media, unspecified, bilateral; H53.143 Visual discomfort, bilateral; R53.1 Weakness; Z79.899 Other long term (current) drug therapy; Z88.8 Allergy status to other drugs, medicaments and biological substances; D72.829 Elevated white blood cell count, unspecified; R31.9 Hematuria, unspecified
CPT/HCPCS: 96376; 99285; 96361; 96375; 96365; 36415; 85025; 81025; 80053; 81001; 70450; J1200; J1885; J2550; J2405; J7030; J1100